=== PATIENT | female | born 1990 | race Caucasian/White ===

== ENCOUNTER 2018-07-07 20:59 | Emergency (ER) | payer BC ==
[~2018-07-07] VITALS: Ht 167.6 cm; Wt 68.0 kg
[2018-07-07] MEDS ORDERED: IBUPROFEN600 MG PO (22:51)
[2018-07-07 23:00] VITALS: BP 113/72
== END 2018-07-07 23:03 | disposition home or self-care (01) | DRG 605 ==
LOC: ED 20:59
DX: S60.511A Abrasion of right hand, initial encounter (principal); W23.0XXA Caught, crushed, jammed, or pinched between moving objects, initial encounter; Y93.K9 Activity, other involving animal care; Y92.009 Unspecified place in unspecified non-institutional (private) residence as the place of occurrence of the external cause

== ENCOUNTER 2021-02-18 17:19 | Emergency (ER) | payer SELFPAY ==
[~2021-02-18] VITALS: Ht 167.6 cm; Wt 64.0 kg
[~2021-02-18 17:19] MED LIST: IBUPROFEN600 MG PO
[2021-02-18 18:34] LABS: URINE BILIRUBIN - DIPSTICK NEGATIVE (NEGATIVE); URINE BLOOD DIPSTICK LARGE (NEGATIVE); URINE COLOR YELLOW; URINE GLUCOSE - DIPSTICK NEGATIVE (NEGATIVE); URINE KETONE NEGATIVE (NEGATIVE); URINE LEUK ESTERASE NEGATIVE (NEGATIVE); URINE PROTEIN - DIPSTICK NEGATIVE (NEG-TRACE); URINE SPECIFIC GRAVITY >=1.030; URINE UROBILINOGEN - DIPSTICK 0.2 E.U./dL (0.2)
[2021-02-18 18:36] LABS: URINE NITRITE - DIPSTICK NEGATIVE (Negative)
[2021-02-18 18:47] LABS: URINE SQUAMOUS EPITHELIAL CELL FEW EPI/hpf (0-FEW); URINE WBC 0-2 WBC/hpf (0-5)
[2021-02-18 19:14] LABS: HEMATOCRIT 40.8 % (37.0-47.0); HEMOGLOBIN 13.4 g/dl (12.0-16.0); IMMATURE GRANULOCYTES 0.1 % (0.0-5.0); MEAN CELL VOLUME 92.9 fL CALC (80.0-100.0); MEAN CORPUSCULAR HGB 30.5 pG CALC (26.0-32.0); MEAN CORPUSCULAR HGB CONC 32.8 g/dL CAL (32.0-36.0); NEUT# 3.98 thou/uL (2.00-7.15); RED BLOOD COUNT 4.39 mill/uL (4.20-5.60); RED CELL DISTRI WIDTH 11.7 % (11.5-15.5)
[2021-02-18 19:34] LABS: ALBUMIN 4.6 g/dL (3.2-5.0); ALKALINE PHOSPHATASE 41 u/l (38-126); ANION GAP 14 (6-22 (CALC)); BILIRUBIN, TOTAL 0.8 mg/dL (0.0-1.4); BUN 14 mg/dL (7-17); BUN/CREATININE RATIO 16 (12-20 (CALC)); CARBON DIOXIDE 22 mmol/l (22-30); CHLORIDE 106 mmol/l (95-108); CREATININE 0.9 mg/dL (0.5-1.0); GFR > 60 ML/MIN (>=60 (CALC)); GFR FOR AFR.AMER. > 60 ML/MIN (>=60 (CALC)); SGOT/AST 23 u/l (14-36); SODIUM 138 mmol/l (137-146); TOTAL PROTEIN 7.7 g/dL (6.3-8.2)
[2021-02-18 19:50] LABS: BETA-HCG, QUANT(RESULT NUMBER) <2 mIU/mL
[2021-02-18] MEDS ORDERED: NAPROXEN500 MG PO (21:57)
[2021-02-18 22:00] VITALS: BP 120/68
== END 2021-02-18 22:06 | disposition home or self-care (01) | DRG 392 ==
LOC: ED 17:19
PROVIDERS: Emergency Medicine
DX: R10.2 Pelvic and perineal pain (principal)
CPT/HCPCS: Q9967

== ENCOUNTER 2021-07-01 16:54 | Emergency (ER) | payer SELFPAY ==
[~2021-07-01] VITALS: Ht 167.6 cm; Wt 63.0 kg
[~2021-07-01 16:54] MED LIST changes: +NAPROXEN500 MG PO
[2021-07-01] MEDS ORDERED: LORTAB 1010 MG PO (20:42)
[2021-07-01 21:54] VITALS: BP 123/70
== END 2021-07-01 21:54 | disposition home or self-care (01) | DRG 563 ==
LOC: ED 16:54
DX: S82.832A Other fracture of upper and lower end of left fibula, initial encounter for closed fracture (principal); W11.XXXA Fall on and from ladder, initial encounter
CPT/HCPCS: L1830